=== PATIENT | female | born 1995 | race Caucasian/White ===

== ENCOUNTER 2025-03-28 11:26 | Emergency (ER) | payer OTHER, SELFPAY ==
--- NOTE | 2025-03-28 11:29 | ED.FEMALEGU ---
HPI - Female Genitourinary General Chief complaint: Urogenital-Female Stated complaint: std test Time Seen by Provider: 03/28/25 11:29 Source: patient Mode of arrival: ambulatory Limitations: no limitations History of Present Illness HPI Narrative: Navya is a 29 year old male patient presenting to the clinic today with concerns for STD. She reports she received a phone call from a previous sexual partner and they told her that they had oral gonorrhea. She reports she has a slight sore throat but she is concerned that maybe she is just thinking that her throat may be sore due to the circumstances. Last menstrual period was 2 weeks ago but is concern for . Denies any vaginal discharge or bleeding. Denies any other symptoms other than feeling anxious due to the circumstances. Related Data Allergies Allergy/AdvReac Type Severity Reaction Status Date / Time No Known Allergies Allergy Verified 03/28/25 11:39 Review of Systems Review of Systems: Pertinent positives per HPI. Patient denies any fever, chills, rash, headache, visual changes, dizziness, cough, runny nose, shortness of breath, chest pain, palpitations, nausea, vomiting, diarrhea, constipation, abdominal pain, or any urinary issues. PMFSH Comments At the time of my signature, I reviewed and agree with the nursing past medical, surgical, social, and family history. There is no relevant family history pertinent to the patient complaint. Exam Narrative: General: Well-developed, well nourished, in no apparent distress Head: Normocephalic, atraumatic Eyes: Pupils equally round and reactive to light bilaterally, EOM intact, sclera and conjunctive clear, no discharge, lids normal Ears: TMs intact and clear, ear canals clear, no drainage, grossly hearing normal. Nose: Nares patent, no discharge, no inflammation, no sinus tenderness. Mouth: Oropharynx mildly red without lesions or masses, good dentition, MMM. Neck: Supple, trachea midline, no enlargement of anterior or posterior cervical nodes, no thyroid masses or goiter palpable. Cardio: Regular rate and rhythm, s1 and s2 normal, no murmur appreciated. Resp: Clear to auscultation bilaterally anteriorly and posteriorly, no rhonchi, rales, wheezing or rubs Abdomen: Soft, pliable, bowel sounds present in all quadrants, non-tender to palpation, no organomegly, no CVAT tenderness. : Deferred Course Course Level of Care: Express Care Visit Vital Signs Vital signs: Vital Signs Temperature 36.6 C 03/28/25 11:32 Pulse Rate 133 H 03/28/25 11:32 Respiratory Rate 20 03/28/25 11:32 Blood Pressure 134/76 03/28/25 11:32 Pulse Oximetry 100 03/28/25 11:32 Oxygen Delivery Room Air 03/28/25 11:32 Temperature 36.6 C 03/28/25 11:32 Pulse Rate 133 H 03/28/25 11:32 Respiratory Rate 20 03/28/25 11:32 Blood Pressure 134/76 03/28/25 11:32 Pulse Oximetry 100 03/28/25 11:32 Oxygen Delivery Room Air 03/28/25 11:32 MDM MDM Narrative Medical decision making narrative: At the time of visit patient is resting comfortably on the exam table. Patient appears to be nontoxic. Concerns for STD exposure. She reports she received a phone call from a previous sexual partner and they told her that they had oral gonorrhea. She reports she has a slight sore throat but she is concerned that maybe she is just thinking that her throat may be sore due to the circumstances. Last menstrual period was 2 weeks ago but is concern for . Denies any vaginal discharge or bleeding. Denies any other symptoms other than feeling anxious due to the circumstances. Bedside , urinalysis, urine for chlamydia, gonorrhea, and Trichomonas testing was ordered. Offered to swab patient's throat and she declined at this time states she would just like to be treated. Patient reports she had oral and vaginal intercourse with this person. Labs: Urinalysis shows a trace of leukocytes but no nitrates or blood. Bedside test was negative. Medication: Rocephin 500 mg IM mixed with lidocaine was given in the clinic today Plan: Patient was notified that she had exposure to oral gonorrhea. Rocephin 500 mg IM given in the clinic today to cover for gonorrhea. Will also send in prescription for doxycycline to cover for chlamydia. Patient denying any vaginal symptoms at this time. No urinary symptoms. Supportive measures were discussed with the patient and they voiced understanding discharge instructions and agrees to treatment plan. Return precautions reviewed Differential Diagnosis Differential Diagnosis: Differential diagnostic considerations for female urogenital issues include urinary tract infection, bacterial vaginosis, cervicitis, ovarian cyst, vaginitis, STI exposure, ovarian torsion, ectopic , cyst of Bartholin?s gland, cystitis, dysmenorrhea. Lab Data Labs: Lab Results 03/28/25 03/28/25 Range/Units 11:50 11:57 POC Urine Color Yellow POC Urine Clarity Clear POC Urine pH 8.5 POC Ur Specif [place] 1.020 POC Urine Protein Negative (Negative) POC Ur Glucose (UA) Negative (Negative) POC Urine Ketones Negative (Negative) POC Urine Blood Negative (Negative) POC Urine Nitrite Negative (Negative) POC Urine Bilirubin Negative (Negative) POC Urine Urobilinogen 1.0 POC U Leukocyte Esteras Trace (Negative) POC Urine HCG, Qual Negative (Negative) Discharge Plan Discharge Clinical Impression: Exposure to gonorrhea Patient Disposition: Home Condition: Stable Instructions: Antibiotic Form, Safe Sex Practices (ED), Gonorrhea (ED) Additional Instructions: Bedside test was negative in the clinic today. Urinalysis is negative for any sign of infection Urine testing was sent for chlamydia, gonorrhea, and Trichomonas Take doxycycline as prescribed-this will cover for chlamydia Rocephin 500 mg injection given in the clinic today-this will cover for gonorrhea. We have tested/treated you for STIs in the clinic today. Avoid any sexual activity- includes oral, anal, or vaginal intercourse until you get results back and have completed any additional recommended treatment regimens. We will contact you if testing is positive and make sure your treatment was appropriate for the type of STI. If symptoms worsen after treatment recommend reevaluation with your PCP or STI clinic Patient Language: Irish Prescriptions: New doxycycline monohydrate 100 mg capsule 100 mg PO BID 7 Days Qty: 14 0RF Follow-up/Referrals: UNKNOWN,DOCTOR [Non-Staff] Time of Disposition: 11:55 Quality [facility] Nursing Documentation ED NIHSS nursing documentation: reviewed/agree
[2025-03-28 11:32] VITALS: BP 134/76; PULSE 133; RESP 20; TEMP 36.6; O2SAT 100
--- OUTSIDE RECORDS SUMMARY | 2025-03-28 11:35 | XMS_ITS | Clinical Summary ---
Author Organization [facility] Address [address] [place] [address] Care Team Providers Care Special Population Paraprofessional Name Role Phone No, Physician Primary Care Provider Allergies No known active allergies Medications Tri Femynor 0.18/0.215/0.25 mg-35 mcg (28) per tablet 2 Active traZODone (DESYREL) 50 mg tablet Take 1 tablet (50 mg total) by mouth nightly as needed for sleep 60 tablet 2 Active Additional Information Patient not taking.Reported on 02/09/2025 sertraline (ZOLOFT) 50 mg tablet Take 1 tablet (50 mg total) by mouth daily 60 tablet 2 Active Additional Information Patient not taking.Reported on 02/09/2025 cyclobenzaprine (FLEXERIL) 10 mg tablet Take 1 tablet (10 mg total) by mouth 2 (two) times a day as needed for muscle spasms 20 tablet 5 Active Additional Information Patient not taking.Reported on 02/09/2025 QUEtiapine (SEROquel) 300 mg tablet Take 1 tablet (300 mg total) by mouth 5 Active Active Problems Problem Noted Date Diagnosed Date Urinary tract infection symptoms 11/01/2022 Assessment & Plan (11/01/2022 4:08 PM CDT): Abnormal color and odor to urine x 3-4 days. Prior history of kidney infection. Physical exam as documented above, negative for flank pain. No acute signs of illness. Urinalysis ordered. Will wait for results to determine therapy. Patient has follow-up with Dr. Gonzales on 12/28/22 At risk for sexually transmi tted disease due to unprotected sex 11/01/2022 Assessment & Plan (11/01/2022 4:10 PM CDT): Patient concerned for STI risk due to recent encounter. Order for Chlamydia/Gonorrhea/Trich (urine) today. Offered HIV/Syphilis test today- patient declined. Insomnia 02/09/2022 Annual physical exam 12/29/2021 Assessment & Plan (12/29/2021 2:02 PM CDT): Doing well. BMI:18.30 (underweight) Routine labs ordered - BMP Preventative Screening Due: Up to date. Will request most recent chip silo tender note Dietary and exercise recommendations given today. Recommend exercise at least 30 minutes moderate to vigorous exercise and some strength training most days of the week. (minimum 150 minutes weekly) Vaccines due - influenza vaccine in the fall RTC annually for f/u Excessive sweating 12/29/2021 Assessment & Plan (12/29/2021 2:06 PM CDT): Chronic. Metabolic vs environmental (Sleeping environment) - Will check routine labs (CBC, TSH, BMP) - Monitor bedding environment. Avoid heavy blankets, lots of clothing etc PTSD (post-traumatic stress disorder) 01/29/2018 Depression with anxiety 01/29/2018 Assessment & Plan (02/09/2022 3:58 PM CDT): Chronic and improved. PHQ-2 score -1 IOANA-7 score 5- mild anxiety - Continue Zoloft 50 mg daily. - Start Trazodone 50mg hs for insomnia. Risks benefits and alternatives discussed -continue with counseling weekly -follow-up in 6 weeks for re-evaluation or sooner if needed Assessment & Plan (12/29/2021 2:03 PM CDT): Chronic and recurrent. PHQ-9 score 15 IOANA-7 score 7- moderate/mild depression and anxiety - Restart Zoloft 50 mg daily. Risks benefits and alternatives discussed -continue with counseling weekly -follow-up in 6 weeks for re-evaluation or sooner if needed Cocaine abuse, in remission 01/29/2018 Alcohol abuse, in remission 01/29/2018 Encounters Date Type Department Care Team Description 02/10/2025 Results Follow-Up [facility] [address] [place] [place] [phone] Lori Cooley, BILLING AUDITOR Trichomonas vaginalis PCR Urine 02/09/2025 9:02 PM CDT - 02/09/2025 11:59 PM CDT Hospital Encounter [address] [id number] Discharge Disposition: Discharge to home or self care 02/09/2025 6:00 PM CDT Office Visit [facility] [place] [address] [place] [phone] Lori Cooley, PRESLEY Screening examination for STI (Primary Dx) 01/25/2025 Telephone [facility] [place] [address] [place] [phone] Lori Cooley, BILLING AUDITOR 01/25/2025 Results Follow-Up [facility] [place] [address] [place] [phone] Lori Cooley, PRESLEY HIV 1/2 Antibody plus p24 Antigen Blood, HSV 1 IgG Antibody Blood, HSV 2 IgG Antibody Blood, Additional followed-up results: 3 01/24/2025 3:35 PM CDT Lab [facility] [address] [place] [phone] Screening examination for STI 01/24/2025 11:31 AM CDT - 01/24/2025 11:59 PM CDT Hospital Encounter [address] [address] Screening examination for STI Discharge Disposition: Discharge to home or self care 01/24/2025 11:15 AM CDT Office Visit [facility] [address] [place] [phone] Cooley, Lori F., BILLING AUDITOR Screening examination for STI (Primary Dx); Trichomonas infection 12/27/2024 4:05 PM CDT - 12/27/2024 11:59 PM CDT Hospital Encounter [facility] [address] [place] [address] Right foot sprain, initial encounter; Metatarsal fracture, pathologic, right, initial encounter Discharge Disposition: Discharge to home or self care from Last 3 Months Immunizations Immunization Administration Dates Next Due DTP 12/10/1999,03/05/1996,04/10/1995 DTP / HiB 1994,1994 HPV, Quadrivalent 04/03/2008,10/23/2007,08/15/19 08 Hep A, Pediatric 10/04/2005,12/09/2004 Hep B, Adolescent or Pediatric 04/10/1995,1994,1994 Influenza LAIV (Nasal) 02/22/2011 Influenza, Quadrivalent, Spl it, Preservative Free, Intramuscular 01/29/2018 MMR 12/10/1999,08/15/1995 Meningococcal MCV4P (Menactra) 02/22/2011,2007 OPV 12/10/1999, 6,04/10/1995,12/30,1994 Tdap 12/01/2014,03/09/2006 Varicella 08/20/2007,11/27/1997 Medical History Medical History Date Comments Anxiety Depression Social History Tobacco Use Types Packs/Day Years Used Date Smoking Tobacco: Every Day Smokeless Tobacco: Never Alcohol Use Standard Drinks/Week Comments Yes 0 (1 standard drink = 0.6 oz pur e alcohol) AUDIT-C Answer Date Recorded Q1: How often do you have a drink containing alc ohol? Never 12/29/2021 Average Number of Drinks Not on file 022 Frequency of Binge Drinking Not on file 10/2021 PHQ-2 Answer Date Recorded PHQ-2 Total Score (If total score is 3 or more points, staff should administer the PHQ-9) 1 02/09/2022 Personal Safety Answer Date Recorded Have you ever been in or are you currently in a harmful physical or emotional relationship or is someone making you feel afraid or unsafe? Denies 12/11/2024 Comments No Sex and Gender Information Value Date Recorded Sex Assigned at Not on file Legal Sex Female 3:33 AM [employer] Gender Identity Not on file Sexual Orientation Not on file Last Filed Vital Signs Vital Sign Reading Time Taken Comments Blood Pressure 110/64 02/09/2025 5:51 PM CDT Pulse 95 02/09/2025 5:51 PM CDT Temperature 36.7 C (98 F) 02/09/2025 5:51 PM CDT Respiratory Rate 16 02/09/2025 5:51 PM CDT Oxygen Saturation 100% 02/09/2025 5:51 PM CDT Inhaled Oxygen Concentration - - Weight 57.1 kg (125 lb 12.8 oz) 02/09/2025 5:51 PM CDT Height 165.1 cm (5' 5) 02/09/2025 5:51 PM CDT Body Mass Index 20.93 02/09/2025 5:51 PM CDT Plan of Treatment Health Maintenance Due Date Last Done Comments Cervical Cancer Screening 1994 Pneumococcal vaccine <65 (1 of 2 - PCV) 2013 Regular Well Visit/Exam 18-64 12/29/2022 12/29/2021 Depression Screening 02/09/2023 02/09/2022, 12/29/2021, 12/29/2021 DTaP/Tdap/Td Vaccine (8 - Td or Tdap) 12/01/2024 12/01/2014, 03/09/2006, 12/10/1999, Additional history exists Influenza Vaccine (#1) 2024 01/29/2018, 2010 Hepatitis B Screening Completed 04/10/1995 , 1994, 1994 Varicella Vaccines Completed 08/20/2007, 11/27/1997 HPV Vaccines Completed 04/03/2008, 07/04/2007, 08/15/2007 Hepatitis C Screening Completed 11/12/2020 Procedures Procedure Name Priority Date/Time Associated Diagnosis Comments TRICHOMONAS VAGINALIS PCR Routine 02/09/2025 6:10 PM CDT HIV 1/2 ANTIBODY PLUS P24 ANTIGEN Routine 01/24/2025 3:44 PM CDT Screening examination for STI HSV 2 ANTIBODY, IGG Routine 01/24/2025 3 :44 PM CDT Screening examination for STI HSV 1 ANTIBODY, IGG Routine 01/24/2025 3 :44 PM CDT Screening examination for STI RPR Routine 01/24/2025 3:44 PM CDT Screening examination for STI TREPONEMAL IGG/IGM Routine 01/24/2025 3: 44 PM CDT Screening examination for STI POCT URINALYSIS DIPSTICK Routine 01/24/2025 11:32 AM CDT Screening examination for STI TRICHOMONAS VAGINALIS PCR Routine 01/24/2025 11:31 AM CDT Screening examination for STI N. GONORRHOEAE/C. TRACHOMATIS AMPLIFICATION Routine 01/24/2025 10:30 AM CDT Screening examination for STI CT FOOT RIGHT WO CONTRAST Schedule Routine, Read Routine (OP Routine) 12/27/2024 4:25 PM CDT Right foot sprain, initial encounter Metatarsal fracture, pathologic, right, initial encounter HEPATITIS PANEL, ACUTE STAT 11/12/2020 9:45 AM CDT from Last 3 Months or Most Recently Relevant to Health Maintenance Results * (ABNORMAL) Trichomonas vaginalis PCR Urine (02/09/2025 6:10 PM CDT) Trichomonas DNA Detected( A) [facility] Comment: Interpretive Data This assay detects Trichomonas vaginalis by nucleic acid amplification testing (NAAT). This assay has been cleared by the [place] Food and Drug administration. The performance characteristics of this test have been verified by the [facility]ious Disease laboratory. The performance of this test has not been evaluated in individuals less than 18 years of age. Current Interpretive Data was last revised on 2023. Testing performed by: [facility], [address] [place]., [address] Urine 02/09/2025 6:10 PM CDT 02/10/2025 11:25 AM CDT us Lori Cooley NP LAB MICROBIOLOGY - GENERAL ORDERABLES Final Result [facility] [id number] [place] [address] [place] [address] [facility] * Treponemal IgG/IgM Blood (01/24/2025 3:44 PM CDT) Treponemal IgG/IgM Nonreactive Nonreactive Comment: Interpretive Data: If test is reported as EQUIVOCAL, a new sample should be drawn in two weeks for testing. Current interpretive data was last revised on 2018. Testing performed by: [address] [address] Blood 01/24/2025 3:44 PM CDT 01/24/2025 7:25 PM CDT us Lori Cooley NP LAB MICROBIOLOGY - GENERAL ORDERABLES Final Result Performing Organization Address [facility] Co de Phone Number J[facility]ENTINO COOLEY ([place]) 1 [facility] [place] [address] * HIV 1/2 Antibody plus p24 Antigen Blood (01/24/2025 3:44 PM CDT) HIV 1/2 ab + p24 ag Nonreactive Nonreactive Comment: Nonreactive for HIV-1 antigen and HIV-1/HIV-2 antibodies. No laboratory evidence of HIV infection. If acute HIV infection is suspected, consider testing for HIV-1 RNA. Testing performed by: [address] [address] Blood 01/24/2025 3:44 PM CDT 01/24/2025 7:25 PM CDT Lori Cooley NP LAB MICROBIOLOGY - GENERAL ORDERABLES Final Result [facility] COOLEY ([place]ERT[place]) 1 [facility] [place] [address] * HSV 2 IgG Antibody Blood (01/24/2025 3:44 PM CDT) Pathologist [facility] HSV 2 IgG Nonreactive Nonreactive Comment: Interpretive Data 1. Nonreactive: No detectable IgG antibody to HSV-2. 2. Equivocal: Presence or absence of detectable antibodies to HSV-2 cannot be determined and the test should be repeated. 3. Reactive: Indicates presence of detectable IgG antibody to HSV-2. Current interpretive data was last revised on 2022. Testing performed by: [facility], [address] [place] [address]., [id number] Blood 01/24/2025 3:44 PM CDT 01/24/2025 11:55 PM CDT Lori Cooley NP LAB MICROBIOLOGY - GENERAL ORDERABLES Final Result Performing Organization Address [facility] Co de Phone Number [facility] ([place]) 1 [facility] [place] [address] * HSV 1 IgG Antibody Blood (01/24/2025 3:44 PM CDT) [facility] HSV 1 IgG Nonreactive Nonreactive Comment: Interpretive Data 1. Nonreactive: No detectable IgG antibody to HSV-1. 2. Equivocal: Presence or absence of detectable antibodies to HSV-1 cannot be determined and the test should be repeated. 3. Reactive: Indicates presence of detectable IgG antibody to HSV-1. Current interpretive data was last revised on 2016. Testing performed by: [facility], [address] [place] [address], [place]., [address] Blood 01/24/2025 3:44 PM CDT 01/24/2025 11:55 PM CDT Lori Cooley NP LAB MICROBIOLOGY - GENERAL ORDERABLES Final Result Performing Organization Address City/[facility]/ZIP Co de Phone Number JUVENTINO COOLEY ([place]ERTO) 1 [facility] Department [place] [address] * RPR Blood (01/24/2025 3:44 PM CDT) [facility] RPR Nonreactive Nonreactive Comment:Testing performed by : [facility], [address] [place] [address]., [id number] Blood 01/24/2025 3:44 PM CDT 01/24/2025 7:25 PM CDT Lori Cooley NP LAB MICROBIOLOGY - GENERAL ORDERABLES Final Result [facility] COOLEY ([place]) 1 [facility] [place] [address] * (ABNORMAL) POCT urinalysis dipstick (01/24/2025 11:32 AM CDT) [facility] Color, Urine, POC Yellow Clarity, ur, POC Clear Clear Glucose, ur, POC Negative Negative Bilirubin, ur, POC Negative Negative Ketones, ur, POC Negative Negative Specific [place], POC 1.025 1.003 - 1.030 Blood, ur, POC Negative Negative pH, ur, POC 6.0 5.0 - 8.0 Protein, ur, POC Negative Negative Urobilinogen, urine, POC 0.2 0.2 - 1.0 mg/dL Nitrite, ur, POC Negative Negative Leukocytes, ur, POC Trace(A) Negative Lot Number [id number] Urine 01/24/2025 11:3 2 AM CDT Lori Cooley NP POINT OF CARE TEST ORDERAB LES Final Result * (ABNORMAL) Trichomonas vaginalis PCR Urine (01/24/2025 11:31 AM CDT) [facility] Trichomonas DNA Detected( A) [facility] Comment: Interpretive Data This assay detects Trichomonas vaginalis by nucleic acid amplification testing (NAAT). This assay has been cleared by the [place] Food and Drug administration. The performance characteristics of this test have been verified by the [facility] laboratory. The performance of this test has not been evaluated in individuals less than 18 years of age. Current Interpretive Data was last revised on 2023. Testing performed by: [facility], [address] [place]., [address] Urine 01/24/2025 11:3 1 AM CDT 01/24/2025 8:24 PM CDT Lori Cooley NP LAB MICROBIOLOGY - GENERAL ORDERABLES Final Result Performing Organization Address City/[facility] Co de Phone Number [facility] [address] [address] [place] [address] [facility] * N. gonorrhoeae/C. trachomatis Amplification Urine (01/24/2025 10:30 AM CDT) C. trachomatis Not Detected [facility] Comment:Testing performed by : [facility], [address] [place] [address]., [id number] N. gonorrhoeae Not Detected [facility] Comment: Interpretive Data This assay detects Chlamydia trachomatis and Neisseria gonorrhoeae by nucleic acid amplification testing (NAAT). This assay has been cleared by the [place] Food and Drug administration. The performance characteristics of this test have been verified by the [facility] laboratory. The performance characteristics of this test have not been evaluated in individuals less than 14 years of age. Current Interpretive Data was last revised on 2023. Testing performed by: [facility], [address] [place] [address]., [id number] Urine (None) 01/24/2025 10:3 0 AM CDT 01/24/2025 8:26 PM CDT Lori Cooley NP LAB MICROBIOLOGY - GENERAL ORDERABLES Final Result Performing Organization Address City/[facility]/ZIP Co de Phone Number [facility] [address] [address] Department [place] [employer] [place] [address] [facility] * CT Foot Right WO Contrast (12/27/2024 4:25 PM CDT) Anatomical Region Laterality Modality Lower Extremities Right Computed Tomog kuldeep 12/31/2024 9:13 AM CDT Impressions 12/31/2024 9:13 AM CDT Multiple fractures of the foot to include the medial, middle, and lateral cuneiforms as well as the 2nd through 4th metatarsals. Given presence of moderately displaced intra-articular 2nd metatarsal base fracture, underlying Lisfranc ligamentous injury is likely. Suggest orthopedic or podiatric surgical consultation. Electronically signed by: Mohit Mi II, D.O. Narrative 12/31/2024 9:13 AM CDT EXAMINATION: CT FOOT RIGHT WO CONTRAST DATE: 12/27/2024 4:30 PM HISTORY: Right foot sprain. Evaluate for metatarsal fracture. COMPARISON: 12/11/2024. TECHNIQUE: Transaxial computed tomographic images of the right foot were obtained without contrast. Multiplanar coronal and sagittal images were reformatted. FINDINGS: Nondisplaced 4th metatarsal base fracture, series 6 image 98. Nondisplaced 3rd metatarsal base intra-articular fracture with associated minimally displaced fracture of the lateral cuneiform, series 6 images 87 and 78. Moderately displaced intra-articular 2nd metatarsal base fracture with probable associated nondisplaced middle cuneiform fracture, series 6 image 81 and 71. Although the Lisfranc interval appears normal in size, presumed Lisfranc ligamentous injury given location of the fracture. There is a mildly displaced medial cuneiform fracture, series 6 image 66. Soft tissue swelling noted along the dorsal aspect of the foot near fracture sites. Procedure Note Mohit Mi II, DO - 12/31/2024 EXAMINATION: CT FOOT RIGHT WO CONTRAST DATE: 12/27/2024 4:30 PM HISTORY: Right foot sprain. Evaluate for metatarsal fracture. COMPARISON: 12/11/2024. TECHNIQUE: Transaxial computed tomographic images of the right foot were obtained without contrast. Multiplanar coronal and sagittal images were reformatted. FINDINGS: Nondisplaced 4th metatarsal base fracture, series 6 image 98. Nondisplaced 3rd metatarsal base intra-articular fracture with associated minimally displaced fracture of the lateral cuneiform, series 6 images 87 and 78. Moderately displaced intra-articular 2nd metatarsal base fracture with probable associated nondisplaced middle cuneiform fracture, series 6 image 81 and 71. Although the Lisfranc interval appears normal in size, presumed Lisfranc ligamentous injury given location of the fracture. There is a mildly displaced medial cuneiform fracture, series 6 image 66. Soft tissue swelling noted along the dorsal aspect of the foot near fracture sites. IMPRESSION: Multiple fractures of the foot to include the medial, middle, and lateral cuneiforms as well as the 2nd through 4th metatarsals. Given presence of moderately displaced intra-articular 2nd metatarsal base fracture, underlying Lisfranc ligamentous injury is likely. Suggest orthopedic or podiatric surgical consultation. Electronically signed by: Mohit Mi II, D.O. Barrie Kirby DPM IMG CT PROCEDURES Final Result * Hepatitis panel, acute (11/12/2020 9:45 AM CDT) Hep A IgM Nonreactive Nonreactive [facility] ([place]) Comment: Interpretive Data: If Hep A IgM Ab is reported as Equivocal, a new sample should be drawn in two weeks for testing. Current interpretive data was last revised on 19. Testing performed by: [facility], [address] [place] [address]., [id number] Hep B core IgM Nonreactive Nonreactive C PETERER LENORA ([place]) Comment: Interpretive Data If HepB Core IgM Ab is reported as Equivocal, a new sample should be drawn in two weeks for testing. Current interpretive data was last revised on 19. Testing performed by: [facility], [address] [place] [address]., [id number] Hep C Ab Nonreactive Nonreactive [facility] ([place]) Comment: Interpretive Data Nonreactive: Antibodies to HCV not detected. Does NOT exclude the possibility of recent exposure to HCV. Equivocal: Equivocal for HCV antibodies. Supplemental molecular testing will be automatically performed to determine infection status in accordance with current CDC screening recommendations. Reactive: Positive for HCV antibodies. This may represent current or past HCV infection. Supplemental molecular testing will be automatically performed to determine current infection status in accordance with current CDC screening recommendations. Interpretive data was last revised on 2019. Testing performed by: [facility], [address] [place] [address]., [id number] HepBsAg Nonreactive Nonreactive [facility] COOLEY ([place]OBERTO) Comment:Testing performed by : [facility], [address] [place] [address]., [id number] Blood specimen (specimen) 11/12/2020 9:45 AM CDT 11/12/2020 2:49 PM CDT Lacho Kraft MD LAB MICROBIOLOGY - GENERAL O RDERABLES Final Result [facility] LENORA ([place]) 1 [facility] [place] [address] from Last 3 Months or Most Recently Relevant to Health Maintenance Insurance [address] [place] [address] [facility] AET[employer] BETTER [facility] Care Teams Special Population Paraprofessional Relationship Specialty Start Date End Date No, Physician PCP - General 12/11/24
--- OUTSIDE RECORDS SUMMARY | 2025-03-28 11:35 | XMS_ITS | Clinical Summary ---
Author Organization [facility] Address [address] [place] [address] Phone Care Team Providers Care Dictaphone Typist Name Role Phone Provider, None Primary Care Provider Unavailabl e Allergies No known active allergies Medications doxycycline monohydrate 100 MG TabletIndications :Acne vulgaris Take 1 Tab by mouth 2 times daily. 60 Tab 05/07/2018 Active QUEtiapine Fumarate 300 MG Tablet 12/13/2024 Active ibuprofen (MOTRIN) 600 MG Tablet 12/25/2024 Active Active Problems Problem Noted Date Diagnosed Date PTSD (post-traumatic stress disorder) 01/29/2018 Depression with anxiety 01/29/2018 Alcohol abuse, in remission 01/29/2018 Cocaine abuse, in remission 01/29/2018 Encounters Date Type Department Care Team Description 03/12/2025 Telephone [facility] [address] [place] [phone] Sulema Hart, PERSONAL LINES INSURANCE ADVISOR, RADIAL DRILL PRESS SET UP OPERATOR 02/11/2025 Telephone [facility] [address] [place] [phone] Sulema Hart, PERSONAL LINES INSURANCE ADVISOR, RADIAL DRILL PRESS SET UP OPERATOR 01/30/2025 Telephone [facility] [address] [place] [phone] Sulema Hart, PERSONAL LINES INSURANCE ADVISOR, RADIAL DRILL PRESS SET UP OPERATOR 01/22/2025 Telephone [facility] [address] [place] [phone] Provider, None Appointment from Last 3 Months Immunizations Immunization Administration Dates Next Due DTP Vaccine 12/10/1999,03/05/1996,04/10/1995 DTP-Hib 1994,1994 Hepatitis A Vaccine, Pediatric/adolescent, 2 Dose Schedule 10/04/2005,12/09/2004 Hepatitis B Vaccine, Pediatric/adolescent 04/10/1995,1994,1994 Human Papillomavirus Vaccine (HPV), quadrivalent 04/03/2008,10/23/2007,08/15/2007 Influenza Vaccine Nasal 02/22/2011 Influenza Vaccine, Quadrivalent, PF 01/29/2018 MMR Vaccine 12/10/1999,08/15/1995 Meningococcal Vaccine 02/22/2011,08/20/2007 OPV 12/10/1999, 6,04/10/1995,12/30,1994 TDAP Vaccine 12/01/2014,03/09/2006 Varicella Vaccine Live 08/20/2007,11/27/1997 Family History Medical History Relation Name Comments No Known Problems Brother No Known Problems Father Cancer Maternal Grandfather Cancer Maternal Grandmother No Known Problems Mother Cancer Paternal Grandmother No Known Problems Sister Relation Name Status Comments Brother Alive Father Alive Maternal Grandfather Maternal Grandmother Mother Alive Paternal Grandfather Other Paternal Grandmother Sister Alive Social History Tobacco Use Types Packs/Day Years Used Date Smoking Tobacco: Every Day Cigarettes Smokeless Tobacco: Never Tobacco Cessation:Ready to Q uit: Not Asked; Counseling Given: Not Answered Alcohol Use Standard Drinks/Week Comments No 0 (1 standard drink = 0.6 oz pur e alcohol) Sober 28 day Sexually Active Control Partners Comments Yes Male Condom Comments Unknown Sex and Gender Information Value Date Recorded Sex Assigned at Not on file Legal Sex Female 3:10 PM [employer] Gender Identity Not on file Sexual Orientation Not on file Last Filed Vital Signs Vital Sign Reading Time Taken Comments Blood Pressure 103/62 12/19/2018 10:18 PM CDT Pulse 84 12/19/2018 10:18 PM CDT Temperature 36.6 C (97.9 F) 12/19/2018 10:18 PM CDT Respiratory Rate 18 12/19/2018 10:18 PM CDT Oxygen Saturation 100% 12/19/2018 10:18 PM CDT Inhaled Oxygen Concentration - - Weight 49.9 kg (110 lb) 12/19/2018 10:18 PM CDT Height 165.1 cm (5' 5) 12/19/2018 10:18 PM CDT Body Mass Index 18.3 12/19/2018 10:18 PM CDT Plan of Treatment Health Maintenance Due Date Last Done Comments Hepatitis C Virus (HCV) Screening 1994 Pneumococcal Immunization Combined (1 of 2 - PCV) 2013 Pap Smear 08/01/2015 Cervical Cancer Screening (CCS) 2024 HPV/Cotest 2024 DTaP/Tdap/Td Immunization (8 - Td or Tdap) 12/01/2024 12/01/2014, 03/09/2006, 12/10/1999, Additional history exists Influenza Immunization (#1) 2024 01/29/2018, 1 04/24/2010 SARS-COV-2 Immunization ( season) 2024 Respiratory Syncytial Virus (RSV) Immunization (Adult) (1 - 1-dose 75+ series) 2069 Hepatitis B Immunization Completed 995, 1994, 1994 Varicella Immunization Completed 08/20/2007, 1997 Human Papillomavirus (HPV) Immunization Completed 04/03/2008, 10/23/2007, 08/15/2007 Meningococcal Immunization (ACWY) Completed 02/22/2011, 08/20/2007 TdaP Immunization Discontinued 12/01/2014, 03/09/2006 Rotavirus Immunization Aged Out No lo nger eligible based on patient's age to complete this topic Insurance MEDICAID [employer] [facility] Care Teams Dictaphone Typist Relationship Specialty Start Date End Date Provider, None VENU PCP - General 12/19/18
[2025-03-28 11:53] LABS: BEDSIDEPREGUCG Negative (Negative)
[2025-03-28 12:00] LABS: EDUAAPPEAR Clear; EDUABILI Negative (Negative); EDUABLOOD Negative (Negative); EDUACOLOR1 Yellow; EDUAGLUCOSE Negative (Negative); EDUAKETONE Negative (Negative); EDUALEUKO Trace (Negative); EDUANITRATE Negative (Negative); EDUAPH 8.5; EDUAPROTEIN Negative (Negative); EDUASPGRAVITY 1.020; EDUAUROBILI 1.0
[2025-03-28] MEDS: cefTRIAXone 500 MG, LIDOCAINE 1% LOCAL INJ 1 ML IM (12:04)
[2025-03-28 19:53] LABS: Trichomonas Vag PCR NOT DETECTED (NOT DETECTE)
== END 2025-03-28 12:24 | disposition home or self-care (01) ==
PROVIDERS: Emergency Provider Nurse Practitioner Family
DX: Z20.2 Contact with and (suspected) exposure to infections with a predominantly sexual mode of transmission (principal); Z11.3 Encounter for screening for infections with a predominantly sexual mode of transmission
CPT/HCPCS: 81003; 81025; 87491; 87591; 87661; 96372; 99203; G0463; J0696; J2003